=== PATIENT | male | born 1965 | race American Indian/Alaskan Native ===

== ENCOUNTER 2017-03-06 11:44 | Inpatient (IN) | payer MEDICAID ==
[2017-03-06 17:40] LABS: Basophils % (Auto) 0.3 % (0.0-1.8); Hematocrit 46.4 % (35.5-45.6); Hemoglobin 15.2 gm/dl (11.8-15.2); Mean Corpuscular HGB Conc 33 % (32-34); Mean Corpuscular Hemoglobin 29 pg (28-32); Mean Corpuscular Volume 87 fl (84-94); Platelet Count 400 K/mm3 (140-440); Red Blood Count 5.32 M/mm3 (3.65-5.03); Red Cell Distribution Width 15.2 % (13.2-15.2)
[2017-03-06 18:08] LABS: Albumin 3.5 g/dL (3.9-5); Albumin/Globulin Ratio 0.9 %; Bilirubin,Total 0.4 mg/dL (0.1-1.2); Calcium 9.1 mg/dL (8.4-10.2); Potassium 4.4 mmol/L (3.6-5.0); Total Protein 7.4 g/dL (6.3-8.2)
[2017-03-06] MEDS ORDERED: MORPHINE IV ONE (20:51)
[2017-03-06] MEDS ORDERED: ZOFRAN IV ONE (20:51)
[2017-03-06] MEDS ORDERED: NACL 0.9% 1000 ML 1,000 ML IV ONE (20:51)
[2017-03-06 21:22] LABS: Bacteria,Urine 1+ /HPF (Negative); Mucus,Urine FEW /HPF
[2017-03-06 21:42] LABS: Bilirubin,Urine Small (Negative); Ketones,Urine Trace mg/dL (Negative)
[2017-03-06 21:43] LABS: Blood,Urine Negative (Negative)
[2017-03-06 21:44] LABS: Leukocyte Esterase,Urine Negative (Negative); Nitrite,Urine Negative (Negative)
--- NOTE | 2017-03-06 21:58 | Emergency Department Report ---
ED Abdominal Pain HPI - General Chief Complaint: Abdominal Pain Stated Complaint: ABD PAIN Time Seen by Provider: 03/06/17 20:16 Source: patient, EMS Mode of arrival: Ambulatory Limitations: Physical Limitation - History of Present Illness Initial Comments: 51 year old male with a past medical history CVA, diabetes, left eye blindness and denies previous surgeries presents to hospital place abdominal pain 4 days. Patient having intermittent sharp left lower quadrant abdominal pain. Worse with palpation. No alleviating factors. Patient states he has decreased appetite with poor by mouth intake for the past 4 days but denies nausea, vomiting, diarrhea, fever, dysuria, hematuria, melena, or hematochezia. Patient 's primary physician is hospital fellow in [place]. He denies previous history of renal problems Severity scale (0 -10): 6 - Related Data Allergies Allergy/AdvReac Type Severity Reaction Status Date / Time No Known Allergies Allergy Unverified 03/06/17 11:52 ED Review of Systems ROS: Stated complaint: ABD PAIN Other details as noted in HPI Comment: All other systems reviewed and negative Other: Constitutional: No fevers chills Eyes: No eye pain visual changes ENT: No ear pain or throat pain Neck: Denies pain Respiratory: Denies cough wheezing shortness of breath Cardiovascular: Denies chest pain, palpitations, syncope GI: As per HPI : Denies dysuria Musculoskeletal: Denies back pain Skin: Denies rash, lesions, erythema Neurologic: Denies headache, chronic right sided weakness status post CVA Psychiatric: Denies suicidal ideation, hallucinations ED Past Medical Hx - Past Medical History Previous Medical History?: Yes Hx CVA: Yes Hx Diabetes: Yes Additional medical history: Left eye blindness with poss cataract - Surgical History Additional Surgical History: unsure - Social History Smoking Status: Former Smoker Substance Use Type: Prescribed ED Physical Exam - General Limitations: Physical Limitation - Other Other exam information: General: No limitations, patient is alert in no acute distress Head exam: Atraumatic, normocephalic Eyes exam: Normal appearance, opacification of left cornea ENT: Moist mucous membrane, normal oropharynx Neck exam: Normal inspection, full range of motion, no meningismus nontender Respiratory exam: Clear to auscultation bilateral, no wheezes, rales, crackles Cardiovascular: Normal rate and rhythm, normal heart sounds Abdomen: Soft, nondistended, epigastric, periumbilical, left lower quadrant tenderness. Normal bowel sounds, no rebound or guarding Extremity: Full range of motion normal inspection no deformity Back: Normal Inspection, full range of motion, no tenderness Neurologic: Alert, oriented x3, cranial nerves intact, chronic right-sided weakness from previous CVA 4/5 strength Psychiatric: normal affect, normal mood Skin: Warm, dry, intact ED Course Vital Signs 03/06/17 03/06/17 03/06/17 11:52 17:04 19:53 Temperature 98.4 F 98.6 F Pulse Rate 110 H 111 H 87 Respiratory 18 18 16 Rate Blood Pressure 136/98 Blood Pressure 124/85 143/90 [Right] O2 Sat by Pulse 100 96 97 Oximetry ED Medical Decision Making - Lab Data Result diagrams: 03/06/17 17:19 03/06/17 17:19 Lab Results 03/06/17 03/06/17 03/06/17 Range/Units 12:00 17:19 17:19 WBC 18.0 H (4.5-11.0) K/mm3 RBC 5.32 H (3.65-5.03) M/mm3 Hgb 15.2 (11.8-15.2) gm/dl Hct 46.4 H (35.5-45.6) % MCV 87 (84-94) fl MCH 29 (28-32) pg MCHC 33 (32-34) % RDW 15.2 (13.2-15.2) % Plt Count 400 (140-440) K/mm3 Lymph % (Auto) 5.5 L (13.4-35.0) % [place] % (Auto) 7.7 H (0.0-7.3) % Eos % (Auto) 0.0 (0.0-4.3) % Baso % (Auto) 0.3 (0.0-1.8) % Lymph # 1.0 L (1.2-5.4) K/mm3 [place] # 1.4 H (0.0-0.8) K/mm3 Eos # 0.0 (0.0-0.4) K/mm3 Baso # 0.1 (0.0-0.1) K/mm3 Seg Neutrophils % 86.5 H (40.0-70.0) % Seg Neutrophils # 15.6 H (1.8-7.7) K/mm3 Sodium 137 (137-145) mmol/L Potassium 4.4 (3.6-5.0) mmol/L Chloride 94.0 L (98-107) mmol/L Carbon Dioxide 24 (22-30) mmol/L Anion Gap 23 mmol/L BUN 41 H (9-20) mg/dL Creatinine 1.9 H (0.8-1.5) mg/dL Estimated GFR 45 ml/min BUN/Creatinine Ratio 22 % Glucose 191 H (75-100) mg/dL POC Glucose 164 H (70-105) Calcium 9.1 (8.4-10.2) mg/dL Total Bilirubin 0.40 (0.1-1.2) mg/dL AST 16 (5-40) units/L ALT 16 (7-56) units/L Alkaline Phosphatase 89 (35-129) units/L Total Protein 7.4 (6.3-8.2) g/dL Albumin 3.5 L (3.9-5) g/dL Albumin/Globulin Ratio 0.9 % Lipase 23 (13-60) units/L Urine Color (Yellow) Urine Turbidity (Clear) Urine pH (5.0-7.0) Ur Specific [place] (1.003-1.030) Urine Protein (Negative) mg/dL Urine Glucose (UA) (Negative) mg/dL Urine Ketones (Negative) mg/dL Urine Blood (Negative) Urine Nitrite (Negative) Ur Reducing Substances Urine Bilirubin (Negative) Urine Ictotest (Negative) Urine Urobilinogen (<2.0) mg/dL Ur Leukocyte Esterase (Negative) Urine WBC (Auto) (0.0-6.0) /HPF Urine RBC (Auto) (0.0-6.0) /HPF U Epithel Cells (Auto) (0-13.0) /HPF Urine Bacteria (Auto) (Negative) /HPF Hyaline Casts /LPF Urine Mucus /HPF 12/20/17 Range/Units Unknown WBC (4.5-11.0) K/mm3 RBC (3.65-5.03) M/mm3 Hgb (11.8-15.2) gm/dl Hct (35.5-45.6) % MCV (84-94) fl MCH (28-32) pg MCHC (32-34) % RDW (13.2-15.2) % Plt Count (140-440) K/mm3 Lymph % (Auto) (13.4-35.0) % [place] % (Auto) (0.0-7.3) % Eos % (Auto) (0.0-4.3) % Baso % (Auto) (0.0-1.8) % Lymph # (1.2-5.4) K/mm3 [place] # (0.0-0.8) K/mm3 Eos # (0.0-0.4) K/mm3 Baso # (0.0-0.1) K/mm3 Seg Neutrophils % (40.0-70.0) % Seg Neutrophils # (1.8-7.7) K/mm3 Sodium (137-145) mmol/L Potassium (3.6-5.0) mmol/L Chloride (98-107) mmol/L Carbon Dioxide (22-30) mmol/L Anion Gap mmol/L BUN (9-20) mg/dL Creatinine (0.8-1.5) mg/dL Estimated GFR ml/min BUN/Creatinine Ratio % Glucose (75-100) mg/dL POC Glucose (70-105) Calcium (8.4-10.2) mg/dL Total Bilirubin (0.1-1.2) mg/dL AST (5-40) units/L ALT (7-56) units/L Alkaline Phosphatase (35-129) units/L Total Protein (6.3-8.2) g/dL Albumin (3.9-5) g/dL Albumin/Globulin Ratio % Lipase (13-60) units/L Urine Color Straw (Yellow) Urine Turbidity Clear (Clear) Urine pH 5.0 (5.0-7.0) Ur Specific [place] 1.025 (1.003-1.030) Urine Protein 100 mg/dl (Negative) mg/dL Urine Glucose (UA) Trace (Negative) mg/dL Urine Ketones Trace (Negative) mg/dL Urine Blood Negative (Negative) Urine Nitrite Negative (Negative) Ur Reducing Substances Not Reportable Urine Bilirubin Small (Negative) Urine Ictotest Negative (Negative) Urine Urobilinogen 2.0 (<2.0) mg/dL Ur Leukocyte Esterase Negative (Negative) Urine WBC (Auto) 2.0 (0.0-6.0) /HPF Urine RBC (Auto) 4.0 (0.0-6.0) /HPF U Epithel Cells (Auto) < 1.0 (0-13.0) /HPF Urine Bacteria (Auto) 1+ (Negative) /HPF Hyaline Casts 3 /LPF Urine Mucus Few /HPF - Radiology Data Radiology results: report reviewed ct a/p noncontrast: trace bilatera effusions, moderate residual stool, distal esophageal wall thickening may represent esophagitis. Contracted gallbladder most likely due to postprandial state - Medical Decision Making Patient has venous insufficiency and patient denies previous history apparently fluids and pain medication initiated. We'll admit to the hospital further hydration secondary to acute renal insufficiency. Patient has a leukocytosis with a UA and CT unremarkable for acute infection - Differential Diagnosis diverticulitis, renal colic, UTI, Critical Care Time: No Critical care attestation.: If time is entered above; I have spent that time in minutes in the direct care of this critically ill patient, excluding procedure time. ED Disposition Clinical Impression: Abdominal pain, Renal insufficiency, Diabetes, Esophagitis, Dehydration Disposition: OP ADMIT IP TO THIS HOSP Is pt being admited?: Yes Condition: Stable Time of Disposition: 22:59 (Dr Liu/hosp)
--- NOTE | 2017-03-06 22:37 | Cat Scan Report ---
FINAL REPORT PROCEDURE: CT ABDOMEN PELVIS WO CON TECHNIQUE: Computerized axial tomography of the abdomen and pelvis was performed without intravenous contrast. This study is performed without intravascular contrast material and its sensitivity for abdominal and pelvic pathology, including neoplasms, inflammation, abscess, free fluid, thrombosis, arterial dissection and infarction, is reduced compared with a contrast enhanced study. HISTORY: llq pain, leukocytosis COMPARISON: No prior studies are available for comparison. FINDINGS: Trace bilateral pleural effusions are noted., Spleen, and adrenal glands are within normal limits. Bilateral kidneys demonstrate normal density without calculi or hydronephrosis. Aorta is of normal caliber. There is no free fluid or free air. Gallbladder is contracted. Small bowel loops are within normal limits. Moderate degree residual stool is noted. Appendix is normal. Mild degree circumferential thickening is noted involving distal esophagus. There is mild prostatomegaly. IMPRESSION: Trace bilateral pleural effusions. Moderate degree residual stool. Distal esophageal wall thickening may represent esophagitis. Clinical correlation and endoscopic evaluation may be recommended. Contracted gallbladder is most likely secondary to postprandial status..
[2017-03-06] MEDS ORDERED: PEPCID IV ONE (23:03)
--- NOTE | 2017-03-06 23:54 | History and Physical Report ---
History of Present Illness Date of examination: 03/06/17 History of present illness: 51-year-old man with a history of diabetes, CVA, is blind in the left eye because emergency room with complaints of abdominal pain that started 4 days ago. He describes it as sharp, constant, intensity 6/10, no radiation and he cannot identify exacerbating or relieving factors He denies nausea vomiting, diarrhea, abdominal pain is now resolved Review Of Systems: Constitutional: no weight loss Ears, eyes, nose, mouth and throat: no nasal congestion, no nasal discharge, no sinus pressure, blurry vision, diplopia Neck: No neck pain or rigidity. Cardiovascular: No chest pain, palpitations Respiratory: No shortness of breath, cough Gastrointestinal: No hematochezia Genitourinary : no dysuria, frequency , hematuria Musculoskeletal: no muscle ache Integumentary: no rash, no pruritis Neurological: no parathesias, focal weakness Endocrine: no cold or heat intolerance, no polyuria or polydipsia Hematologic/Lymphatic: no easy bruising, no easy bleeding, no gland swelling Allergic/Immunologic: no urticaria, no angioedema. PAST MEDICAL HISTORY:diabetes, CVA, is blind in the left eye PAST SURGICAL HISTORY: None FAMILY HISTORY:diabetes SOCIAL HISTORY: Denies alcohol, tobacco, Medications and Allergies Allergies Allergy/AdvReac Type Severity Reaction Status Date / Time No Known Allergies Allergy Unverified 03/06/17 11:52 Home Medications Medication Instructions Recorded Confirmed Last Taken Type Lisinopril 10 mg PO DAILY 03/07/17 03/07/17 1 Week Ago History ~02/28/17 Pantoprazole 40 mg PO DAILY 03/07/17 03/07/17 Unknown History Simvastatin 40 mg PO QHS 03/07/17 03/07/17 Unknown History Tradjenta 5 mg PO DAILY 03/07/17 03/07/17 1 Day Ago History ~03/06/17 Exam - Physical Exam Narrative exam: Gen. appearance: Patient lying in bed in no acute distress HEENT: Normocephalic/atraumatic, right pupil equal round reactive to light, extra occular movement intact, no scleral icterus, no JVD or thyromegaly or nodule, neck is supple, mucous membrane moist, no erythema or exudate Heart: S1-S2, regular rate and rhythm Lungs: Clear to auscultation bilateral breathing comfortable Abdomen: Positive bowel sounds, nontender, nondistended, no organomegaly Extremities: No edema, cyanosis, clubbing Neuro:: Oriented 3 , cranial nerves II-12 intact, speech, motor intact Skin: No rash, nodules, warm dry - Constitutional Vitals: Temp Pulse Resp BP Pulse Ox 98.6 F 87 16 143/90 97 03/06/17 17:04 03/06/17 19:53 03/06/17 19:53 03/06/17 19:53 03/06/17 19:53 Results - Labs CBC & Chem 7: 03/06/17 17:19 03/06/17 17:19 Labs: Abnormal lab results 03/06/17 03/06/17 03/06/17 Range/Units 12:00 17:19 17:19 WBC 18.0 H (4.5-11.0) K/mm3 RBC 5.32 H (3.65-5.03) M/mm3 Hct 46.4 H (35.5-45.6) % Lymph % (Auto) 5.5 L (13.4-35.0) % [place] % (Auto) 7.7 H (0.0-7.3) % Lymph # 1.0 L (1.2-5.4) K/mm3 [place] # 1.4 H (0.0-0.8) K/mm3 Seg Neutrophils % 86.5 H (40.0-70.0) % Seg Neutrophils # 15.6 H (1.8-7.7) K/mm3 Chloride 94.0 L (98-107) mmol/L BUN 41 H (9-20) mg/dL Creatinine 1.9 H (0.8-1.5) mg/dL Glucose 191 H (75-100) mg/dL POC Glucose 164 H (70-105) Albumin 3.5 L (3.9-5) g/dL - Imaging and Cardiology CT scan - abdomen: report reviewed CT scan - pelvis: report reviewed Assessment and Plan Assessment SIRS Acute renal insufficiency Abdominal pain nonspecific Diabetes History of CVA Plan Admit to medicine Start IV fluids, monitor kidney function Start IV Rocephin, follow cultures, check chest x-ray Check fingersticks and initiate insulin sinus DVT prophylaxis
[2017-03-07] MEDS ORDERED: TYLENOL PO PRN (01:53)
[2017-03-07] MEDS ORDERED: MILK OF MAGNESIA PO PRN (01:53)
[2017-03-07] MEDS ORDERED: DULCOLAX PR PRN (01:53)
[2017-03-07] MEDS ORDERED: ZOFRAN IV PRN (01:53)
[2017-03-07] MEDS: PERCOCET 5/325 PO PRN ×3 (02:51→20:44)
[2017-03-07] MEDS: NACL 0.45% 1000 ML 1,000 ML IV SCH (02:56)
[2017-03-07] MEDS ORDERED: D50W (25GM) Syringe IV PRN (03:24)
[2017-03-07] MEDS: cefTRIAXone 1 GM in NACL 0.9% 20 ML IV SCH ×2 (04:52→10:19)
[2017-03-07] MEDS: NOVOLOG SUB-Q SCH ×4 (07:30→22:59)
--- NOTE | 2017-03-07 09:09 | XRay Report ---
AP CHEST: HISTORY: Fever AP view of the chest demonstrates a normal mediastinal and cardiac contour with clear lungs and normal bony and soft tissue structures. IMPRESSION: No acute process in the chest.
[2017-03-07] MEDS ORDERED: LOVENOX SUB-Q SCH (10:00)
[2017-03-07] MEDS: LOVENOX SUB-Q SCH (10:20)
[2017-03-07] MEDS ORDERED: Fluarix Quad 2017-2018(36 MOS+ IM ONE (12:00)
[2017-03-07] MEDS ORDERED: PNEUMOVAX 23 IM ONE (12:00)
--- NOTE | 2017-03-07 14:42 | Progress Note ---
Assessment and Plan 51-year-old man with a history of diabetes, CVA, is blind in the left eye because emergency room with complaints of abdominal pain that started 4 days ago. He describes it as sharp, constant, intensity 6/10, no radiation and he cannot identify exacerbating or relieving factors He denies nausea vomiting, diarrhea, abdominal pain is now resolved - SIRS - Acute renal insufficiency - Abdominal pain nonspecific - Diabetes - UTI - History of CVA Plan Start IV fluids, monitor kidney function. renal US. Nephrology consult Start IV Rocephin, follow cultures, check chest x-ray Check fingersticks and initiate Sliding insulin scale UA showed bacteria and wbc in urine. DVT prophylaxis Subjective Date of service: 03/07/17 Principal diagnosis: SIRS Interval history: no fever chest pain or shortness of breath Objective - Constitutional Vitals: Vital Signs - 12hr 03/07/17 08:27 Temperature 98.3 F Pulse Rate 98 H Respiratory 20 Rate Blood Pressure 121/84 O2 Sat by Pulse 95 Oximetry General appearance: Present: no acute distress, well-nourished, other (blind) - EENT Eyes: PERRL, EOM intact ENT: hearing intact, clear oral mucosa - Neck Neck: supple, normal ROM - Respiratory Respiratory effort: normal Respiratory: bilateral: diminished - Cardiovascular Rhythm: regular Heart Sounds: Present: S1 & S2. Absent: gallop, rub Extremities: pulses intact, No edema, normal color, Full ROM - Gastrointestinal General gastrointestinal: Present: soft, non-tender, non-distended, normal bowel sounds - Integumentary Integumentary: clear, warm, dry - Musculoskeletal Musculoskeletal: 1, strength equal bilaterally - Neurologic Neurologic: other (weak on his right upper and lower extremities) - Psychiatric Psychiatric: memory intact, appropriate mood/affect, intact judgment & insight - Labs CBC & Chem 7: 03/06/17 17:19 03/06/17 17:19 Labs: Abnormal lab results 03/06/17 03/06/17 03/06/17 Range/Units 12:00 17:19 17:19 WBC 18.0 H (4.5-11.0) K/mm3 RBC 5.32 H (3.65-5.03) M/mm3 Hct 46.4 H (35.5-45.6) % Lymph % (Auto) 5.5 L (13.4-35.0) % [place] % (Auto) 7.7 H (0.0-7.3) % Lymph # 1.0 L (1.2-5.4) K/mm3 [place] # 1.4 H (0.0-0.8) K/mm3 Seg Neutrophils % 86.5 H (40.0-70.0) % Seg Neutrophils # 15.6 H (1.8-7.7) K/mm3 Chloride 94.0 L (98-107) mmol/L BUN 41 H (9-20) mg/dL Creatinine 1.9 H (0.8-1.5) mg/dL Glucose 191 H (75-100) mg/dL POC Glucose 164 H (70-105) Albumin 3.5 L (3.9-5) g/dL 03/07/17 03/07/17 Range/Units 06:48 11:42 WBC (4.5-11.0) K/mm3 RBC (3.65-5.03) M/mm3 Hct (35.5-45.6) % Lymph % (Auto) (13.4-35.0) % [place] % (Auto) (0.0-7.3) % Lymph # (1.2-5.4) K/mm3 [place] # (0.0-0.8) K/mm3 Seg Neutrophils % (40.0-70.0) % Seg Neutrophils # (1.8-7.7) K/mm3 Chloride (98-107) mmol/L BUN (9-20) mg/dL Creatinine (0.8-1.5) mg/dL Glucose (75-100) mg/dL POC Glucose 173 H 182 H (70-105) Albumin (3.9-5) g/dL
[2017-03-08] MEDS: NACL 0.45% 1000 ML 1,000 ML IV SCH (01:33)
[2017-03-08 05:46] LABS: Basophils % (Auto) 0.9 % (0.0-1.8); Eosinophils % (Auto) 2.1 % (0.0-4.3); Hematocrit 38.7 % (35.5-45.6); Hemoglobin 12.6 gm/dl (11.8-15.2); Mean Corpuscular HGB Conc 33 % (32-34); Mean Corpuscular Hemoglobin 28 pg (28-32); Mean Corpuscular Volume 87 fl (84-94); Platelet Count 341 K/mm3 (140-440); Red Blood Count 4.45 M/mm3 (3.65-5.03); Red Cell Distribution Width 15.1 % (13.2-15.2); White Blood Count 6.7 K/mm3 (4.5-11.0)
[2017-03-08 05:57] LABS: Anion Gap 19 mmol/L; BUN/Creatinine Ratio 24; Blood Urea Nitrogen 33 mg/dL (9-20); Calcium 8.3 mg/dL (8.4-10.2); Carbon Dioxide 24 mmol/L (22-30); Chloride 98.9 mmol/L (98-107); Glucose 120 mg/dL (75-100); Potassium 4.3 mmol/L (3.6-5.0); Sodium 138 mmol/L (137-145)
[2017-03-08] MEDS: NOVOLOG SUB-Q SCH ×4 (06:48→22:31)
[2017-03-08] MEDS: LOVENOX SUB-Q SCH (09:39)
[2017-03-08] MEDS: cefTRIAXone 1 GM in NACL 0.9% 20 ML IV SCH (09:39)
--- NOTE | 2017-03-08 10:39 | Query-Infection ---
Dear ___Martina Date:_03/08/2017 Motor Room Controller/CDS:__Michelle Phone#:__[phone] Exercise your independent professional judgment when responding to this query. Questions asked do not imply a particular answer is desired or expected. We greatly appreciate your clarification on this issue. Clinical Documentation States: 51 Year old male was admitted on 03/06/2017 with complaints of abdominal pain that started 4 days ago. The IM (Dr. Manzo) progress note on 03/07/2017 states "- UTI. - SIRS." Clinical findings show: (please check applicable parameters) WBC: 18 SD: 111 Infection, known /suspected, with some of the following indicators; Specify the infection: 3 General parameters [ ] Fever (core temp >38.30C or 100.40F) [ ] Hypothermia (core temp <36C) [X] Heart rate >90 bpm [ ] Tachypnea: >20 bpm or pCO2 < 32 mmHg [ ] Altered mental status [ ] Significant edema / +ve fluid balance (>20 ml/kg 24 h) [ ] Hyperglycemia (Bl. glucose >110 mg/dl) w/o diabetes Inflammatory parameters [X] Leukocytosis (white blood cell count >12,000/l) [ ] Leukopenia (white blood cell count <4,000/l) [ ] Bandemia (immature WBC > 10%) [ ] Leucocyte Left Shift [ ] Plasma procalcitonin>2 SD above the normal value Hemodynamic and tissue perfusion parameters [ ] Arterial hypotension(SBP <90 mmHg, MAP <70 mmHg,or a SBP drop >40 mmHg in adults) [ ] Hyperlactatemia (>3 mmol/l) [ ] Anion Gap (> 11mEG/l) [ ] Decreased capillary refill or mottling Organ dysfunction parameters [ ] Arterial hypoxemia (PaO2/FIO2 <300) [ ] Creatinine increase =0.5 mg/dl [ ] Acute oliguria (urine output <0.5 ml | kg |h or 45 mM/l for at least 2 hrs) [ ] Coagulation abnormalities (INR >1.5 or activated partial thromboplastin time >60 s) [ ] Ileus (absent felix wel sounds) [ ] Thrombocytopenia (platelet count <100,000/l) [ ] Hyperbilirubinemia (plasma total bilirubin >4 mg/dl) According to the clinical indications above, can Bacteremia be further specified? If so, please indicate below and in your Progress Notes and/ or Discharge Summary. Indicate if the condition was present on admission. PHYSICIAN RESPONSE: [ ] Sepsis [ ] Severe Sepsis [ ] Septic Shock [ ] Septicemia [ ] Sepsis now resolved [ ] SIRS due to non-infectious cause with organ dysfunction [x] SIRS due to non-infectious cause without organ dysfunction [ ] Other: [ ] Comment/Explanation: Present on Admission: [x ] Yes (Y) [ ] Clinically undeterminable (W) [ ] No (N) [ ] Ruled Out Please also document response in your Progress Notes and/or Discharge Summary and indicate if the condition was present on admission Notes: SIRS/ SIRS WITH ORGAN DYSFUNCTION Systemic inflammatory response syndrome (SIRS) generally refers to the systemic response to trauma/grey or other insult such as Acute Myocardial Infarction, Acute Pancreatitis, and Major Surgery with symptoms including fever, tachycardia , tachypnea, and leukocytosis (1). BACTEREMIA Presence of viable bacteria in the circulating blood (2). This term is reserved for patients that do not manifest above SIRS response. SEPTICEMIA Generally refers to a systemic disease associated with the presence of pathological microorganisms or toxins in the blood, which can include bacteria, viruses, fungi or other organisms (1). SEPSIS Generally refers to SIRS due infection (1). SEVERE SEPSIS Generally refers to sepsis associated with acute organ dysfunction (1). SEPTIC SHOCK Generally refers to circulatory failure associated with severe sepsis (2), and defined as hypotension or hypoperfusion despite adequate fluid resuscitation (1 hour) (3). REFERENCES: 1. [place] [employer]/Society of Critical Care Medicine Consensus Conference. Definitions for sepsis and organ failure and guidelines for the use of innovative therapies in sepsis. Critical Care Med 1992;20:864 - 74. 2. Miguel Angel yanez MM, Lm MP, Matt UZMA, Cristian E, Luis D, Earle D, Abhishek J, Zoë SM , Julito JL, Kasey G; International Sepsis Definitions Conference. 2001 SCCM/ESICM/ACCP/ATS/SIS International Sepsis Definitions Conference. Intensive Care Med. 2003 Apr;29(4):530-8. Epub 2002Jun 12. Review. PubMed PMID:[id number] 3. ICD-9-CM Official Guidelines for Coding and Reporting 4. Medscape Drugs, Diseases and Procedures references 5. [employer] Textbook of Internal Medicine. 18th Edition MTDD
--- NOTE | 2017-03-08 10:45 | Query- Renal Failure ---
Dealele Keenan_Alecia Date:___03/08/2017 Director Immunology/CDS:__Michelle Phone#:__[phone] Exercise your independent professional judgment when responding to query. Questions asked do not imply a particular answer is desired or expected. We greatly appreciate your clarification on this issue. Clinical Documentation States: 51 Year old male was admitted on 03/06/2017 with complaints of abdominal pain that started 4 days ago. The IM (Dr. Mack) progress note on 03/07/2017 states "- Acute renal insufficiency." Clinical Findings Show: Creatinine: 1.9 Please clarify if you mean: Acute Renal Failure with or due to: [ ] Tubular Necrosis [ ] Medullary Necrosis [ x] Vasomotor Nephropathy [ ] Shock Kidney [ ] Tubular Nephrosis [ ] Renal Tubular Stasis [ ] Cortical Necrosis [ ] Acute Renal Failure (unspecified) [ ] Lower Tubular Nephrosis [ ] Other: [ ] Not Applicable Present on Admission: [x ] Yes (Y) [ ] Clinically undeterminable (W) [ ] No (N) Please also document response in your Progress Notes and/or Discharge Summary and indicate if the condition was present on admission. MTDD
--- NOTE | 2017-03-08 14:57 | Consultation ---
History of Present Illness - Reason for Consult Consult date: 03/08/17 acute renal failure Requesting physician: DALE LAROSE - History of Present Illness This is a 51 yo AA M with past medical history of diabetes, CVA, is blind in the left eye because emergency room with complaints of abdominal pain that started 4 days ago. pt also states that he did not have BM for the last 5 days. Abd pain is described as sharp, constant, intensity 6/10, no radiation and he cannot identify exacerbating or relieving factors. He denies nausea vomiting, diarrhea, dysuria, fever, chills, CP, SOB, SOLARES, however reports decreased po intake and hydration for the last week. initial labs showed elevated BUN/Cr at 41/1.9mg/dl, for which renal consult is requested. pt denies previous history of kidney disease, denies recent NSAIDs use or IV contrast exposure. Past History Past Medical History: diabetes, stroke, other (blindness ) Past Surgical History: No surgical history Social history: denies: smoking, alcohol abuse, prescription drug abuse, IV drug use Family history: diabetes Medications and Allergies Allergies Allergy/AdvReac Type Severity Reaction Status Date / Time No Known Allergies Allergy Unverified 03/06/17 11:52 Home Medications Medication Instructions Recorded Confirmed Last Taken Type Lisinopril 10 mg PO DAILY 03/07/17 03/07/17 1 Week Ago History ~02/28/17 Pantoprazole 40 mg PO DAILY 03/07/17 03/07/17 Unknown History Simvastatin 40 mg PO QHS 03/07/17 03/07/17 Unknown History Tradjenta 5 mg PO DAILY 03/07/17 03/07/17 1 Day Ago History ~03/06/17 Active Meds: Active Medications Acetaminophen (Tylenol) 650 mg PO Q4H PRN PRN Reason: Pain MILD(1-3)/Fever >100.5/NEWELL Bisacodyl (Dulcolax) 10 mg [place] QDAY PRN PRN Reason: Constipation unrelieved by MOM Dextrose (D50w (25gm) Syringe) 50 ml IV PRN PRN PRN Reason: Hypoglycemia Enoxaparin Sodium (Lovenox) 40 mg SUB-Q QDAY@1000 NISA Last Admin: 03/08/17 09:39 Dose: 40 mg Sodium Chloride (Nacl 0.45% 1000 Ml) 1,000 mls @ 100 mls/hr IV DIRECT NISA Last Admin: 03/08/17 01:33 Dose: 100 mls/hr Ceftriaxone Sodium 1 gm/ (Sodium Chloride) 20 mls @ 20 mls/10 min IV Q24HR NISA PRN Reason: Protocol Last Admin: 03/08/17 09:39 Dose: 20 mls/10 min Insulin Aspart (Novolog) 0 units SUB-Q ACHS NISA PRN Reason: Protocol Last Admin: 03/08/17 12:43 Dose: 3 units Magnesium Hydroxide (Milk Of Magnesia) 30 ml PO Q4H PRN PRN Reason: Constipation Ondansetron HCl (Zofran) 4 mg IV Q8H PRN PRN Reason: N/V unrelieved by Reglan Oxycodone/Acetaminophen (Percocet 5/325) 1 tab PO Q6H PRN PRN Reason: Pain, Moderate (4-6) Last Admin: 03/07/17 20:44 Dose: 1 tab Review of Systems All systems: negative Constitutional: anorexia, weakness, poor appetite Gastrointestinal: abdominal pain Exam - Vital Signs Vital signs: Vital Signs Temp Pulse Resp BP Pulse Ox 98.4 F 110 H 18 136/98 100 03/06/17 11:52 03/06/17 11:52 03/06/17 11:52 03/06/17 11:52 03/06/17 11:52 - General Appearance General appearance: well-nourished, appears stated age EENT: ATNC, PERRL, mucous membranes moist Neck: Present: neck supple Respiratory: Clear to Ascultation Heart: regular, S1S2 Gastrointestinal: Present: normoactive bowel sounds Integumentary: no rash, other (no edema ) Neurologic: no focal deficit, alert and oriented x3, strength 5/5, CN 3-12 intact Psychiatric: mood/affect appropriate, cooperative Results - Lab Results 03/08/17 04:57 03/08/17 04:57 Most recent lab results Calcium 8.3 mg/dL (8.4-10.2) L 03/08/17 04:57 Phosphorus 3.20 mg/dL (2.5-4.5) 03/08/17 04:57 Magnesium 2.00 mg/dL (1.7-2.3) 03/08/17 04:57 Laboratory Tests 03/06/17 03/08/17 Unknown 04:57 Calcium 8.3 L Phosphorus 3.20 Magnesium 2.00 Urine Color Straw Urine Turbidity Clear Urine pH 5.0 Ur Specific [place] 1.025 Urine Protein 100 mg/dl Urine Glucose (UA) Trace Urine Ketones Trace Urine Blood Negative Urine Nitrite Negative Ur Reducing Substances Not Reportable Urine Bilirubin Small Urine Ictotest Negative Urine Urobilinogen 2.0 Ur Leukocyte Esterase Negative Urine WBC (Auto) 2.0 Urine RBC (Auto) 4.0 U Epithel Cells (Auto) < 1.0 Urine Bacteria (Auto) 1+ Hyaline Casts 3 Urine Mucus Few Assessment and Plan - Patient Problems (1) Acute kidney injury Current Visit: Yes Status: Acute Plan to address problem: Acute kidney most likely due to pre-renal azotemia in the setting of abd pain and decreased po intake. Renal function improving already on IVF cont, IV NS at 75ml/hr check Urine lytes/urine MALB/Cr ratio supportive care for ISHMAEL, will check lytes/ renal parameters and make further recommendations (2) Abdominal pain Current Visit: Yes Status: Acute Plan to address problem: follow GI recs (3) Diabetes Current Visit: Yes Status: Chronic Plan to address problem: glucose control as per primary attending (4) Esophagitis Current Visit: Yes Status: Acute Plan to address problem: f/u GI recs
--- NOTE | 2017-03-08 15:02 | Progress Note ---
Assessment and Plan Assessment and plan: Abdominal pain. CT Abdomen suggest possible esophagitis. Start Protonix. Will consult GI to evaluate Acute kidney injury due to vasomotor nephropathy. Cr was 1.9 yesterday on admission, now 1.4 Diabetes mellitus type 2. Check fingerstick glucose qac and hs Blind in left eye DVT prophylaxis with Lovenox Full code status History Interval history: Abdominal pain. Nausea no fever Hospitalist Physical - Physical exam Narrative exam: GEN APPEARANCE : Not in acute distress, lying in bed HEENT: Normocephalic, Atraumatic NECK : supple, no JVD LUNGS: Clear to auscultation bilaterally, no rales, no wheeze HEART: S1 and S2 regular, no murmurs, rubs or gallop, ABD: Soft, mild lower abd tenderness, non distended, normal bowel sounds EXT: No edema, no clubbing, no cyanosis NEURO: Awake,alert,oriented x 3, no focal signs - Constitutional Vitals: Temp Pulse Resp BP Pulse Ox 98.3 F 94 H 20 146/85 97 03/08/17 07:49 03/08/17 07:49 03/08/17 07:49 03/08/17 07:49 03/08/17 07:49 Results - Labs CBC & Chem 7: 03/08/17 04:57 03/08/17 04:57 Labs: Laboratory Last Values WBC 6.7 K/mm3 (4.5-11.0) 03/08/17 04:57 RBC 4.45 M/mm3 (3.65-5.03) 03/08/17 04:57 Hgb 12.6 gm/dl (11.8-15.2) 03/08/17 04:57 Hct 38.7 % (35.5-45.6) D 03/08/17 04:57 MCV 87 fl (84-94) 03/08/17 04:57 MCH 28 pg (28-32) 03/08/17 04:57 MCHC 33 % (32-34) 03/08/17 04:57 RDW 15.1 % (13.2-15.2) 03/08/17 04:57 Plt Count 341 K/mm3 (140-440) 03/08/17 04:57 Lymph % (Auto) 15.1 % (13.4-35.0) 03/08/17 04:57 [place] % (Auto) 9.5 % (0.0-7.3) H 03/08/17 04:57 Eos % (Auto) 2.1 % (0.0-4.3) 03/08/17 04:57 Baso % (Auto) 0.9 % (0.0-1.8) 03/08/17 04:57 Lymph # 1.0 K/mm3 (1.2-5.4) L 03/08/17 04:57 [place] # 0.6 K/mm3 (0.0-0.8) 03/08/17 04:57 Eos # 0.1 K/mm3 (0.0-0.4) 03/08/17 04:57 Baso # 0.1 K/mm3 (0.0-0.1) 03/08/17 04:57 Seg Neutrophils % 72.4 % (40.0-70.0) H 03/08/17 04:57 Seg Neutrophils # 4.9 K/mm3 (1.8-7.7) 03/08/17 04:57 Sodium 138 mmol/L (137-145) 03/08/17 04:57 Potassium 4.3 mmol/L (3.6-5.0) 03/08/17 04:57 Chloride 98.9 mmol/L (98-107) 03/08/17 04:57 Carbon Dioxide 24 mmol/L (22-30) 03/08/17 04:57 Anion Gap 19 mmol/L 03/08/17 04:57 BUN 33 mg/dL (9-20) H 03/08/17 04:57 Creatinine 1.4 mg/dL (0.8-1.5) 03/08/17 04:57 Estimated GFR > 60 ml/min 03/08/17 04:57 BUN/Creatinine Ratio 24 % 03/08/17 04:57 Glucose 120 mg/dL (75-100) H 03/08/17 04:57 POC Glucose 189 (70-105) H 03/08/17 11:23 Calcium 8.3 mg/dL (8.4-10.2) L 03/08/17 04:57 Phosphorus 3.20 mg/dL (2.5-4.5) 03/08/17 04:57 Magnesium 2.00 mg/dL (1.7-2.3) 03/08/17 04:57 Total Bilirubin 0.40 mg/dL (0.1-1.2) 03/06/17 17:19 AST 16 units/L (5-40) 03/06/17 17:19 ALT 16 units/L (7-56) 03/06/17 17:19 Alkaline Phosphatase 89 units/L (35-129) 03/06/17 17:19 Total Protein 7.4 g/dL (6.3-8.2) 03/06/17 17:19 Albumin 3.5 g/dL (3.9-5) L 03/06/17 17:19 Albumin/Globulin Ratio 0.9 % 03/06/17 17:19 Lipase 23 units/L (13-60) 03/06/17 17:19 Urine Color Straw (Yellow) 03/06/17 Unknown Urine Turbidity Clear (Clear) 03/06/17 Unknown Urine pH 5.0 (5.0-7.0) 03/06/17 Unknown Ur Specific [place] 1.025 (1.003-1.030) 03/06/17 Unknown Urine Protein 100 mg/dl mg/dL (Negative) 03/06/17 Unknown Urine Glucose (UA) Trace mg/dL (Negative) 03/06/17 Unknown Urine Ketones Trace mg/dL (Negative) 03/06/17 Unknown Urine Blood Negative (Negative) 03/06/17 Unknown Urine Nitrite Negative (Negative) 03/06/17 Unknown Ur Reducing Substances Not Reportable 03/06/17 Unknown Urine Bilirubin Small (Negative) 03/06/17 Unknown Urine Ictotest Negative (Negative) 03/06/17 Unknown Urine Urobilinogen 2.0 mg/dL (<2.0) 03/06/17 Unknown Ur Leukocyte Esterase Negative (Negative) 03/06/17 Unknown Urine WBC (Auto) 2.0 /HPF (0.0-6.0) 03/06/17 Unknown Urine RBC (Auto) 4.0 /HPF (0.0-6.0) 03/06/17 Unknown U Epithel Cells (Auto) < 1.0 /HPF (0-13.0) 03/06/17 Unknown Urine Bacteria (Auto) 1+ /HPF (Negative) 03/06/17 Unknown Hyaline Casts 3 /LPF 12/20/17 Unknown Urine Mucus Few /HPF 03/06/17 Unknown
--- NOTE | 2017-03-08 15:31 | Gastroenterology Consultation ---
History of Present Illness - Reason for Consult Consult date: 03/08/17 abdominal pain Requesting physician: COLIN VERA - History of Present Illness Mr Lopez is a 51 yo aam with h/o cva, legally blind, and dm who presents with new onset abdominal pain x 1 week. Patient states abd pain has been diffuse, associated with and w/o meals, and without known triggers or alleviating factors. He has had constipation for the same time frame. He denies prior episodes of similar abd pain or h/o constipation. He denies gi bleeding, weight loss, upper gi complaints, pain meds, or new recent medications. Past History Past Medical History: diabetes, stroke, other (blindness ) Past Surgical History: No surgical history Social history: denies: smoking, alcohol abuse, prescription drug abuse, IV drug use Family history: diabetes Medications and Allergies Allergies Allergy/AdvReac Type Severity Reaction Status Date / Time No Known Allergies Allergy Unverified 03/06/17 11:52 Home Medications Medication Instructions Recorded Confirmed Last Taken Type Lisinopril 10 mg PO DAILY 03/07/17 03/07/17 1 Week Ago History ~02/28/17 Pantoprazole 40 mg PO DAILY 03/07/17 03/07/17 Unknown History Simvastatin 40 mg PO QHS 03/07/17 03/07/17 Unknown History Tradjenta 5 mg PO DAILY 03/07/17 03/07/17 1 Day Ago History ~03/06/17 Active Meds: Active Medications Acetaminophen (Tylenol) 650 mg PO Q4H PRN PRN Reason: Pain MILD(1-3)/Fever >100.5/NEWELL Bisacodyl (Dulcolax) 10 mg [place] QDAY PRN PRN Reason: Constipation unrelieved by MOM Dextrose (D50w (25gm) Syringe) 50 ml IV PRN PRN PRN Reason: Hypoglycemia Enoxaparin Sodium (Lovenox) 40 mg SUB-Q QDAY@1000 NISA Last Admin: 03/08/17 09:39 Dose: 40 mg Ceftriaxone Sodium 1 gm/ (Sodium Chloride) 20 mls @ 20 mls/10 min IV Q24HR NISA PRN Reason: Protocol Last Admin: 03/08/17 09:39 Dose: 20 mls/10 min Sodium Chloride (Nacl 0.9% 1000 Ml) 1,000 mls @ 75 mls/hr IV DIRECT NISA Insulin Aspart (Novolog) 0 units SUB-Q ACHS NISA PRN Reason: Protocol Last Admin: 03/08/17 12:43 Dose: 3 units Magnesium Hydroxide (Milk Of Magnesia) 30 ml PO Q4H PRN PRN Reason: Constipation Ondansetron HCl (Zofran) 4 mg IV Q8H PRN PRN Reason: N/V unrelieved by Reglan Oxycodone/Acetaminophen (Percocet 5/325) 1 tab PO Q6H PRN PRN Reason: Pain, Moderate (4-6) Last Admin: 03/07/17 20:44 Dose: 1 tab Review of Systems - Review of Systems All systems: negative (per hpi) Exam - Constitutional Vital Signs: Temp Pulse Resp BP Pulse Ox 98.3 F 94 H 20 146/85 97 03/08/17 07:49 03/08/17 07:49 03/08/17 07:49 03/08/17 07:49 03/08/17 07:49 General appearance: no acute distress - EENT ENT: hearing intact - Neck Neck: supple, normal ROM - Respiratory Respiratory effort: normal Respiratory: bilateral: CTA - Cardiovascular Rhythm: regular Heart Sounds: Present: S1 & S2 Extremities: No edema - Gastrointestinal General gastrointestinal: Present: soft, tender (diffuse mild ttp), non- distended, normal bowel sounds - Integumentary Integumentary: Present: warm, dry - Neurologic Neurological: alert and oriented x3 - Labs CBC & Chem 7: 03/08/17 04:57 03/08/17 04:57 Lab Results: Laboratory Results - last 24 hr 03/07/17 03/07/17 03/08/17 15:49 21:23 04:57 WBC 6.7 RBC 4.45 Hgb 12.6 Hct 38.7 D MCV 87 MCH 28 MCHC 33 RDW 15.1 Plt Count 341 Lymph % (Auto) 15.1 [place] % (Auto) 9.5 H Eos % (Auto) 2.1 Baso % (Auto) 0.9 Lymph # 1.0 L [place] # 0.6 Eos # 0.1 Baso # 0.1 Seg Neutrophils % 72.4 H Seg Neutrophils # 4.9 Sodium Potassium Chloride Carbon Dioxide Anion Gap BUN Creatinine Estimated GFR BUN/Creatinine Ratio Glucose POC Glucose 217 H 133 H Calcium Phosphorus Magnesium 03/08/17 03/08/17 03/08/17 04:57 06:34 11:23 WBC RBC Hgb Hct MCV MCH MCHC RDW Plt Count Lymph % (Auto) [place] % (Auto) Eos % (Auto) Baso % (Auto) Lymph # [place] # Eos # Baso # Seg Neutrophils % Seg Neutrophils # Sodium 138 Potassium 4.3 Chloride 98.9 Carbon Dioxide 24 Anion Gap 19 BUN 33 H Creatinine 1.4 Estimated GFR > 60 BUN/Creatinine Ratio 24 Glucose 120 H POC Glucose 117 H 189 H Calcium 8.3 L Phosphorus 3.20 Magnesium 2.00 Assessment and Plan 1. abdominal pain - ct with findings suggestive of esophagitis and constipation (which is likely contributing to abd pain). will start bowel regimen and water enema. needs colonoscopy for screening as outpatient. denies upper gi complaints, will hold off on endoscopy at this time unless symptoms/other indication develops. okay to d/c if tolerating po and improves following bm. Will sign off, please call as needed or with questions.
[2017-03-08] MEDS ORDERED: CITRATE OF MAGNESIA PO ONE (16:00)
[2017-03-08] MEDS: NACL 0.9% 1000 ML 1,000 ML IV SCH (17:57)
[2017-03-08] MEDS ORDERED: APRESOLINE IV PRN (22:51)
[2017-03-09] MEDS: NACL 0.9% 1000 ML 1,000 ML IV SCH (06:14)
[2017-03-09 06:30] LABS: Anion Gap 19 mmol/L; BUN/Creatinine Ratio 17; Blood Urea Nitrogen 19 mg/dL (9-20); Carbon Dioxide 22 mmol/L (22-30); Chloride 105.1 mmol/L (98-107); Glucose 170 mg/dL (75-100); Potassium 3.9 mmol/L (3.6-5.0); Sodium 142 mmol/L (137-145)
[2017-03-09] MEDS: NOVOLOG SUB-Q SCH ×3 (07:54→12:17)
[2017-03-09 08:37] VITALS: BP 157/100
--- NOTE | 2017-03-09 09:08 | Discharge Summary ---
Providers - Providers Date of Admission: 03/06/17 23:53 Date of discharge: 03/09/17 Attending physician: COLIN VERA 03/07/17 14:49 Consult to Physician [CONS] Routine Consulting Provider: YARA PEACOCK Reason For Exam: Acute ranl failure Place consult to:: Elma Notified:: PLEASE CALL MD IN AM Was contact made?: Yes Comment:: Dr. hendricks to place patient on list 03/08/17 08:46 Consult to Physician [CONS] Routine Consulting Provider: JOANIE CHOW Reason For Exam: Abdominal pain Place consult to:: Dr. Avelina Roman Notified:: Yes Phone number called:: [phone] Was contact made?: Yes If yes, spoke with:: Angela Garcia called:: 11:15 Comment:: Dr. Avelina chung Primary care physician: ENVIRONMENTAL SERVICES ATTENDANT Hospitalization Condition: Fair Disposition: DC-01 TO HOME OR SELFCARE Core Measure Documentation - Palliative Care Palliative Care/ Comfort Measures: Not Applicable - Core Measures Any of the following diagnoses?: none Exam - Constitutional Vitals: Temp Pulse Resp BP Pulse Ox 97.5 F L 105 H 20 157/100 99 03/09/17 08:16 03/08/17 23:40 03/09/17 08:16 03/09/17 08:16 03/08/17 20:06 Plan Activity: no restrictions Diet: low fat, low cholesterol, low salt, diabetic Additional Instructions: 1.Follow up with PCP in 1 week. 2.Follow up with Dr. Venu Roman, GI in 1 week to schedule colonoscopy Follow up with: PRIMARY CARE,MD [Primary Care Provider] - 7 Days Prescriptions: amLODIPine [Norvasc] 5 mg PO QDAY #30 tablet Pantoprazole [Protonix TAB] 40 mg PO DAILY #30 tablet traMADol [Ultram 50 MG tab] 50 mg PO Q6HR PRN #12 tablet PRN Reason: Pain
[2017-03-09] MEDS: LOVENOX SUB-Q SCH (09:22)
[2017-03-09] MEDS: NORVASC PO SCH ×2 (09:23→10:22)
[2017-03-09] MEDS ORDERED: NON-FORMULARY (Pantoprazole 40 MG) PO SCH (10:00)
[2017-03-09] MEDS ORDERED: PROTONIX PO SCH ×2 (10:00)
[2017-03-09] MEDS: cefTRIAXone 1 GM in NACL 0.9% 20 ML IV SCH (10:36)
[2017-03-09] MEDS ORDERED: NON-FORMULARY (Simvastatin 40 MG) PO SCH (22:00)
[2017-03-09] MEDS ORDERED: PRAVACHOL PO SCH (22:00)
== END 2017-03-09 15:00 | disposition home or self-care (01) | DRG 391 ==
LOC: ED 11:44 → 3A 23:53
PROVIDERS: ADMIT Internal Medicine; ATTEND Internal Medicine
PROC: 3E0234Z Introduction of Serum, Toxoid and Vaccine into Muscle, Percutaneous Approach (ICD-10-PCS; principal; 2017-03-07)
DX: K20.9 Esophagitis, unspecified (principal); N17.0 Acute kidney failure with tubular necrosis; N39.0 Urinary tract infection, site not specified; E86.0 Dehydration; R65.10 Systemic inflammatory response syndrome (SIRS) of non-infectious origin without acute organ dysfunction; H54.62 Unqualified visual loss, left eye, normal vision right eye; E11.8 Type 2 diabetes mellitus with unspecified complications; Z86.73 Personal history of transient ischemic attack (TIA), and cerebral infarction without residual deficits; Z83.3 Family history of diabetes mellitus; Z79.899 Other long term (current) drug therapy; Z23 Encounter for immunization
CPT/HCPCS: 36415; 71010; 74176; 80048; 80053; 81001; 82043; 82962; 83690; 83735; 84100; 84156; 84300; 85025; 90471; 90472; 90686; 90732; 96374; 96375; 99285; A9270-GY; J0360; J0696; J1650; J1815; J2270; J2405; J7030